=== PATIENT | female | born 1990 | race African-American/Black ===

== ENCOUNTER 2016-11-24 13:51 | Emergency (ER) | payer MEDICAID ==
[~2016-11-24] VITALS: Ht 157.5 cm; Wt 83.9 kg
[~2016-11-24 13:51] MED LIST: NORPTMEDS CO
[2016-11-24 13:59] VITALS: BP 133/81
[2016-11-24] MEDS ORDERED: KETOROLAC TROMETH 60MG/2ML VIAL IM ONE (15:15)
== END 2016-11-24 16:56 | disposition home or self-care (01) ==
LOC: ER 13:51
DX: S16.1XXA Strain of muscle, fascia and tendon at neck level, initial encounter (principal); Z88.0 Allergy status to penicillin; Z91.010 Allergy to peanuts; V49.9XXA Car occupant (driver) (passenger) injured in unspecified traffic accident, initial encounter; Y93.89 Activity, other specified; Y99.8 Other external cause status; Y92.89 Other specified places as the place of occurrence of the external cause
CPT/HCPCS: 72040; 96372; 99284; J1885

== ENCOUNTER 2018-05-30 20:29 | Emergency (ER) | payer MEDICAID | END 2018-05-30 20:30 | disposition left against medical advice (07) | LOC: ER 20:29 | DX: N93.9 Abnormal uterine and vaginal bleeding, unspecified (principal); Z53.21 Procedure and treatment not carried out due to patient leaving prior to being seen by health care provider ==

== ENCOUNTER 2018-05-31 15:59 | Emergency (ER) | payer MEDICAID ==
[~2018-05-31] VITALS: Ht 157.5 cm; Wt 79.4 kg
[2018-05-31 16:46] LABS: Basophils # (auto) 0.1 uL; Basophils % (auto) 0.7 % (0.0-2.0); Eosinophils # (auto) 0.3 uL; Eosinophils % (auto) 2.2 % (0.0-7.0); Hematocrit 39.8 % (36.0-46.0); Hemoglobin 12.9 g/dL (12.2-16.2); Lymphocytes # (auto) 3.7 uL; Mean Corpuscular Hgb Conc. 32.6 g/dL (32.0-36.0); Mean Corpuscular Volume 92.3 fL (80.0-100.0); Monocytes # (auto) 0.6 uL; Monocytes % (auto) 4.9 % (0.0-12.0); Neutrophils % (auto) 60.2 % (37.0-80.0); Nucleated Red Blood Cells % 0.1 %; Platelet Count (auto) 431 10^3/uL (140-450); Red Blood Cells 4.31 10^6/uL (4.0-5.20); Red Cell Distribution Width 14.6 % (11.8-14.3); White Blood Cell 11.6 10^3/uL (4.4-10.8)
[2018-05-31 17:00] LABS: Albumin 3.5 g/dL (3.4-5.0); BUN/Creatinine Ratio 14.1; Calcium 8.3 mg/dL (8.5-10.1); Potassium 3.5 mmol/L (3.5-5.1)
[2018-05-31 17:02] LABS: Bilirubin, Total 0.2 mg/dL (0.2-1.0); Total Protein 7.9 g/dL (6.4-8.2)
[2018-05-31 17:03] LABS: Urine Bacteria NONE SEEN /hpf (None Seen); Urine Blood Negative /uL (Negative); Urine Specific Gravity 1.015 (1.001-1.035); Urine WBC 1 /hpf (0 - 5)
[2018-05-31] MEDS ORDERED: SODIUM CHLORIDE 0.9% 1,000 ML IVB ONE (17:17)
[2018-05-31] MEDS ORDERED: ONDANSETRON HCL 4 MG/2 ML VIAL IV ONE ×2 (17:30→21:00)
[2018-05-31] MEDS ORDERED: MORPHINE SULFATE 10 MG/ML INJ 1ML SDV IV ONE ×2 (17:30→21:00)
[2018-05-31 18:40] LABS: INR 0.93 (0.9-1.15); Partial Thromboplastin Time 31.7 sec (23.78-33.04)
[2018-05-31 21:33] VITALS: BP 157/89
== END 2018-05-31 21:59 | disposition home or self-care (01) ==
LOC: ER 16:04
DX: T83.84XD Pain due to genitourinary prosthetic devices, implants and grafts, subsequent encounter (principal); T83.32XD Displacement of intrauterine contraceptive device, subsequent encounter; X58.XXXD Exposure to other specified factors, subsequent encounter; Z91.010 Allergy to peanuts
CPT/HCPCS: 36415; 74176; 76856; 80053; 81001; 81025; 84702; 85025; 85610; 85730; 94761; 96374; 96375; 96376; 99284; J2270; J2405

== ENCOUNTER 2019-03-01 15:24 | Inpatient (IN) | payer MEDICAID, OTHER ==
[~2019-03-01] VITALS: Ht 154.9 cm; Wt 107.0 kg
[2019-03-01 16:22] LABS: Urine Bacteria NONE SEEN /hpf (None Seen); Urine Blood Negative /uL (Negative); Urine Specific Gravity 1.023 (1.001-1.035); Urine WBC 1 /hpf (0 - 5)
[2019-03-01 16:30] LABS: Basophils # (auto) 0.1 uL; Eosinophils % (auto) 1.9 % (0.0-7.0); Monocytes # (auto) 0.8 uL; White Blood Cell 12.9 10^3/uL (4.4-10.8)
[2019-03-01 16:32] LABS: Eosinophils # (auto) 0.2 uL; Hematocrit 39.2 % (36.0-46.0); Lymphocytes # (auto) 4.1 uL; Mean Corpuscular Hemoglobin 29.7 pg (28.0-32.0); Mean Corpuscular Hgb Conc. 33.2 g/dL (32.0-36.0); Mean Corpuscular Volume 89.4 fL (80.0-100.0); Neutrophils # (auto) 7.6 uL; Neutrophils % (auto) 59.1 % (37.0-80.0); Nucleated Red Blood Cells % 0.1 %; Platelet Count (auto) 450 10^3/uL (140-450); Red Blood Cells 4.39 10^6/uL (4.0-5.20); Red Cell Distribution Width 14.4 % (11.8-14.3)
[2019-03-01 16:33] LABS: Albumin 3.6 g/dL (3.4-5.0); Calcium 8.8 mg/dL (8.5-10.1); Potassium 3.7 mmol/L (3.5-5.1)
[2019-03-01 16:36] LABS: BUN/Creatinine Ratio 13.4; Bilirubin, Total 0.2 mg/dL (0.2-1.0); Total Protein 7.9 g/dL (6.4-8.2)
[2019-03-01] MEDS ORDERED: KETOROLAC TROMETH 30 MG/ML 1ML VIAL IV ONE (16:45)
[2019-03-01] MEDS ORDERED: ONDANSETRON HCL 4 MG/2 ML VIAL IV ONE ×2 (16:45→22:45)
[2019-03-01] MEDS ORDERED: SODIUM CHLORIDE 0.9% 1,000 ML IV ONE (16:45)
[2019-03-01] MEDS ORDERED: MORPHINE SULF INJ 2 MG/ML SYRINGE 1ML IV ONE ×2 (18:00→22:45)
[2019-03-01] MEDS ORDERED: PROMETHAZINE HCL 25 MG/ML 1ML IV ONE ×2 (18:00→23:00)
[2019-03-01] MEDS ORDERED: PANTOPRAZOLE 40 MG/10 ML VIAL INJ IV ONE (22:30)
[2019-03-01 23:45] VITALS: BP 118/68
--- NOTE | 2019-03-01 23:45 | NUR ---
received pt from er nurse poc reviewed
[2019-03-02] MEDS: SODIUM CHLORIDE 0.9% 1,000 ML IV SCH ×3 (01:12→19:55)
[2019-03-02] MEDS: MORPHINE SULF INJ 2 MG/ML SYRINGE 1ML IV PRN ×4 (02:36→18:57)
[2019-03-02 05:00] VITALS: BP 111/57
[2019-03-02 06:23] LABS: Basophils # (auto) 0 uL; Basophils % (auto) 0.5 % (0.0-2.0); Eosinophils # (auto) 0.3 uL; Hematocrit 36.1 % (36.0-46.0); Hemoglobin 11.9 g/dL (12.2-16.2); Lymphocytes % (auto) 41.8 % (10.0-50.0); Mean Corpuscular Hemoglobin 29.7 pg (28.0-32.0); Mean Corpuscular Hgb Conc. 32.9 g/dL (32.0-36.0); Mean Corpuscular Volume 90.1 fL (80.0-100.0); Monocytes # (auto) 0.6 uL; Monocytes % (auto) 6.4 % (0.0-12.0); Neutrophils # (auto) 4.6 uL; Neutrophils % (auto) 48.3 % (37.0-80.0); Nucleated Red Blood Cells % 0.1 %; Platelet Count (auto) 391 10^3/uL (140-450); Red Cell Distribution Width 14.5 % (11.8-14.3); White Blood Cell 9.5 10^3/uL (4.4-10.8)
--- NOTE | 2019-03-02 06:24 | NUR ---
awoke request hot packs, pain not relieved with earlier med given
[2019-03-02 06:33] LABS: INR 0.95 (0.9-1.15); Partial Thromboplastin Time 28.2 sec (23.64-32.05)
[2019-03-02 06:34] LABS: BUN/Creatinine Ratio 11.8; Calcium 7.9 mg/dL (8.5-10.1); Potassium 3.8 mmol/L (3.5-5.1)
--- NOTE | 2019-03-02 06:50 | NUR ---
resting quietly report given to am nurse poc reviewed
--- NOTE | 2019-03-02 08:30 | NUR ---
PT REPORTS 10 PAIN IN ABDOMEN. PRN PAIN MEDICATION GIVEN. PT RESTING IN BED AND ENCOURAGED TO USE CALL LIGHT. WILL CONTINUE TO MONITOR.
[2019-03-02] MEDS: FAMOTIDINE (10MG/ML) 2ML VL IV SCH ×2 (10:35→21:19)
[2019-03-02] MEDS ORDERED: KETOROLAC TROMETH 30 MG/ML 1ML VIAL IV ONE (11:15)
[2019-03-02] MEDS ORDERED: AZITHROMYCIN 500MG/ 250ML 250 ML IV ONE (11:15)
[2019-03-02] MEDS ORDERED: cefTRIAXone 1GM/50ML D5W 50 ML IV ONE (11:15)
--- NOTE | 2019-03-02 11:30 | NUR ---
DR QUIGLEY SAW PATIENT, NEW ORDERS FOR CT OF THE CHEST WITH CONTRAST AND ABX, AND TO CALL MD WITH RESULTS.
[2019-03-02] MEDS: traMADol HCL 50 MG TAB PO PRN (11:40)
[2019-03-02] MEDS ORDERED: IOHEXOL 350 MG/ML 100ML IJ ONE (11:55)
--- NOTE | 2019-03-02 12:00 | NUR ---
PT REPORTS 10/10 PAIN IN RIGHT SIDE AND ABDOMEN. PRN PAIN MEDICATION GIVEN.
--- NOTE | 2019-03-02 12:15 | NUR ---
DR QUIGLEY ORDERED ONE TIME DOSE OF TORADOL, PRN TORADOL ALREADY GIVEN.
[2019-03-02 12:51] VITALS: BP 116/69
--- NOTE | 2019-03-02 13:38 | NUR ---
CALLED PBX AND PAGED DR QUIGLEY TO REPORT CT RESULTS REQUESTED.
--- NOTE | 2019-03-02 13:47 | NUR ---
PT REPORTS IV SITE HURTS. ASSESSED PT IV SITE. IV SITE SWOLLEN WITH LARGE BUMP JUST ABOVE THE RAC. SLIGHT ERYTHEMA NOTED. IV DC'D. PRESSURE DRESSING APPLIED. WILL ATTEMPT NEW IV SITE. DR QUIGLEY CALLED BACK. NOTIFIED CT RESULTS NEGATIVE. DR QUIGLEY AWARE.
--- NOTE | 2019-03-02 15:02 | NUR ---
Discharge instructions given as ordered. Encourage to follow up with PMD as instructed. All questions and concerns addressed. Patient verbalized understanding. Medication reconciliation form completed and copy given to patient. IV removed with catheter intact, pressure dressing applied. Telemetry unit returned to ICU. Patient taken to vehicle via wheelchair with all personal belongings, accompanied by staff and family member. No distress noted at time of departure. Addendum: 03/02/19 at 1504 by JEN MADRIGAL RN WRONG PATIENT
[2019-03-02 17:14] VITALS: BP 117/69
--- NOTE | 2019-03-02 19:24 | NUR ---
Opening Shift Note Assumed care of patient, awake and alert x 4. No S/S of distress/SOB or pain. NS infusing at ordered rate. Bed is in lowest position and locked. Call light within reach. Board updated. Instructed on POC and to call for assist PRN, will continue to monitor for changes Q1hr and PRN.
--- NOTE | 2019-03-02 19:57 | NUR ---
Paging hospitalist because patient is still having pain, 5 out of 10, in her right flank. Morphine given at 1900 only decreased pain from 7 to 5 out of 10. Pain is usually at at 5 for 90 minutes then increases back to 7-8 out of 10. Per patient, Tramadol does very little for pain. Patient is also breathing shallowly because pain is increased when she breathes in deep. Patient has an appendectomy 3 years ago but states that pain was very similar to the pain she is having now. Abd/Pelvic CT revealed sutures along cecum from appendectomy and some hepatomegaly. Requesting stronger pain medication if possible and GI consult.
--- NOTE | 2019-03-02 20:03 | NUR ---
Spoke to GISELL Irwin. Orders received: 1) Gallbladder ultrasound, 2) Dilaudid 0.5 mg IV q 4 hrs PRN pain, 3) Discontinue morphine, 4) GI consult for abdominal pain. Orders received, verified, and placed.
[2019-03-02] MEDS: HYDROmorphone HCL 2 MG/ML VL IV PRN (20:49)
[2019-03-02 21:57] VITALS: BP 124/62
[2019-03-03] MEDS: HYDROmorphone HCL 2 MG/ML VL IV PRN ×5 (00:34→20:36)
[2019-03-03] MEDS: traMADol HCL 50 MG TAB PO PRN ×2 (03:40→11:37)
[2019-03-03 05:00] VITALS: BP 111/63
[2019-03-03] MEDS: SODIUM CHLORIDE 0.9% 1,000 ML IV SCH ×2 (05:51→13:31)
[2019-03-03 06:55] LABS: Basophils # (auto) 0.1 uL; Basophils % (auto) 0.7 % (0.0-2.0); Eosinophils # (auto) 0.3 uL; Eosinophils % (auto) 2.5 % (0.0-7.0); Hematocrit 35.5 % (36.0-46.0); Hemoglobin 11.5 g/dL (12.2-16.2); Lymphocytes % (auto) 26.8 % (10.0-50.0); Mean Corpuscular Hemoglobin 29.1 pg (28.0-32.0); Mean Corpuscular Hgb Conc. 32.3 g/dL (32.0-36.0); Mean Corpuscular Volume 90.2 fL (80.0-100.0); Monocytes # (auto) 0.6 uL; Monocytes % (auto) 5.9 % (0.0-12.0); Neutrophils # (auto) 7.1 uL; Neutrophils % (auto) 64.1 % (37.0-80.0); Nucleated Red Blood Cells % 0.1 %; Platelet Count (auto) 400 10^3/uL (140-450); Red Blood Cells 3.94 10^6/uL (4.0-5.20)
[2019-03-03 07:03] LABS: BUN/Creatinine Ratio 4.8; Calcium 7.9 mg/dL (8.5-10.1); Potassium 3.7 mmol/L (3.5-5.1)
--- NOTE | 2019-03-03 08:25 | NUR ---
Patient back to room, crying, on a wheelchair, being assisted by JAIDEN Elizabeth. Assisted the patient back to bed. Patient said she went downstairs. Cigarette smell noted. Patient denies smoking.
--- NOTE | 2019-03-03 08:30 | NUR ---
Patient signed the AMA form to smoke off unit. Patient stated she's not going downstairs.
--- NOTE | 2019-03-03 08:42 | NUR ---
Patient came from the bathroom, crying, stated she's in pain, at 10/10 at this time. Dilaudid Inj 0.5 mg given for severe pain.
[2019-03-03] MEDS: ONDANSETRON HCL 4 MG/2 ML VIAL IV PRN ×2 (08:47→16:55)
--- NOTE | 2019-03-03 08:47 | NUR ---
Patient had vomiting. White, cloudy liquid vomitus noted. Zofran Inj given for nausea/vomiting.
[2019-03-03 08:51] VITALS: BP 119/71
[2019-03-03] MEDS: AZITHROMYCIN 500MG/ 250ML 250 ML IV SCH (10:08)
[2019-03-03] MEDS: FAMOTIDINE (10MG/ML) 2ML VL IV SCH (10:08)
[2019-03-03] MEDS: cefTRIAXone 1GM/50ML D5W 50 ML IV SCH (10:09)
--- NOTE | 2019-03-03 11:15 | NUR ---
New IV line started on the right hand, 22 gauge, intact and patent. IV line on the left forearm, patient complained of pain/sore on the site, IV line removed, IV catheter intact, pressure dressing applied.
--- NOTE | 2019-03-03 11:24 | NUR ---
Dr. Guerra at bedside. Patient complained of pain on the right lower back, crying. MD to put in new orders.
--- NOTE | 2019-03-03 11:37 | NUR ---
Ultram PO given for pain at 10/10.
[2019-03-03] MEDS ORDERED: PANTOPRAZOLE 40 MG/10 ML VIAL INJ IV ONE (11:45)
[2019-03-03 11:57] VITALS: BP 124/68
[2019-03-03] MEDS ORDERED: LORazepam 2MG/ML-1ML VIAL IV PRN (12:00)
--- NOTE | 2019-03-03 12:40 | NUR ---
Yajaira Sands at bedside. explained the EGD and Colonoscopy to the patient.
[2019-03-03] MEDS ORDERED: GOLYTELY 4L KIT PO ONE (12:45)
[2019-03-03] MEDS: CYCLOBENZAPRINE HCL 10 MG TAB PO SCH ×2 (13:29→21:44)
[2019-03-03] MEDS: KETOROLAC TROMETH 30 MG/ML 1ML VIAL IV SCH ×2 (13:30→21:44)
--- NOTE | 2019-03-03 13:30 | NUR ---
Ketorolac Inj given for pain as ordered.
--- NOTE | 2019-03-03 14:40 | NUR ---
Patient in bed, asleep. No acute distress noted.
[2019-03-03 16:20] VITALS: BP 106/64
[2019-03-03] MEDS: SUCRALFATE 1 GM/10 ML ORAL SUSP PO SCH ×2 (16:55→21:44)
--- NOTE | 2019-03-03 16:55 | NUR ---
Patient stated she's nauseous and her back and stomach in pain. Zofran Inj given for nausea, Dilaudid Inj 0.5 mg given for pain. Placed on O2 at 2 LPM. No acute distress noted.
--- NOTE | 2019-03-03 17:20 | NUR ---
Jose from Nuclear Medicine called that NM HIDA Scan will be done tomorrow morning, 03/04/2019; keep patient NPO, including Golytely. Jose made aware Yajaira Sands ordered EGD and Colonoscopy for tomorrow.
[2019-03-03] MEDS: PANTOPRAZOLE 40 MG TAB PO SCH (21:45)
--- NOTE | 2019-03-03 21:48 | NUR ---
Patient reports seeing "worm-like" things in her stool the last time she went to the bathroom. Patient reports she occasionally sees them sometimes and is concerned she may have a tapeworm. I told patient to notify me the next time she has a bowel movement so that I may assess.
[2019-03-03 21:57] VITALS: BP 125/70
--- NOTE | 2019-03-03 22:12 | NUR ---
Patient reported a painful sore on her right labia. Patient states she noticed it earlier today and does not know what could have caused it. I assessed and discovered what appears to be a pressure area on right labia. Wound photographed and measured. Wound consult placed. Will endorse to day shift RN.
--- NOTE | 2019-03-03 23:12 | NUR ---
Patient reports her stool this time is normal and free of worms. Will continue to assess.
[2019-03-04] VITALS (7 sets, daily range): BP systolic 102–151; BP diastolic 66–88
--- NOTE | 2019-03-04 00:03 | NUR ---
PT ASKING FOR DILAUDID.PT ON PHONE YELLING INTO IT. PT HAS NOW PLACED PHONE CONVERSATION ON SPEAKER. ID BAND OF PATIENT CHECKED AND PT/MEDICATION SCANNED. PT JUMPED UP FROM THE BED TO GO INTO THE BATHROOM. PT WAS GIVEN DILAUDID QUICKLY-BUT SLAMMED DOOR TO BATHROOM TO CONTINUE HER VOLATILE PHONE CONVERSATION.NOT KNOWING HOW LONG PATIENT WAS GOING TO BE IN THE BATHROOM;THE OPPORTUNITY TO QUICKLY MOVE HER ROOMATE TO ROOM 280 A WAS EXECUTED. Addendum: 03/05/19 at 0127 by Carrie Allen RN DATE FOR THIS SITUATION IS05 MARCH 3.
[2019-03-04] MEDS: HYDROmorphone HCL 2 MG/ML VL IV PRN ×5 (00:33→19:35)
[2019-03-04] MEDS: SODIUM CHLORIDE 0.9% 1,000 ML IV SCH ×3 (01:30→21:00)
--- NOTE | 2019-03-04 02:00 | NUR ---
Patient still has approximately 2/5 of Go-lytely left but patient must be NPO for EGD and HIDA scan in AM. Patient's stools are liquid and light robert colored.
[2019-03-04] MEDS: SUCRALFATE 1 GM/10 ML ORAL SUSP PO SCH ×4 (05:07→22:19)
[2019-03-04] MEDS: CYCLOBENZAPRINE HCL 10 MG TAB PO SCH ×3 (05:07→22:20)
[2019-03-04 05:38] LABS: Basophils # (auto) 0.1 uL; Basophils % (auto) 0.5 % (0.0-2.0); Eosinophils # (auto) 0.4 uL; Hematocrit 36.9 % (36.0-46.0); Hemoglobin 12.1 g/dL (12.2-16.2); Lymphocytes # (auto) 3.7 uL; Lymphocytes % (auto) 31.8 % (10.0-50.0); Mean Corpuscular Hemoglobin 29.5 pg (28.0-32.0); Mean Corpuscular Hgb Conc. 32.8 g/dL (32.0-36.0); Mean Corpuscular Volume 89.9 fL (80.0-100.0); Monocytes # (auto) 0.8 uL; Monocytes % (auto) 6.5 % (0.0-12.0); Neutrophils # (auto) 6.7 uL; Neutrophils % (auto) 58.2 % (37.0-80.0); Nucleated Red Blood Cells % 0.1 %; Platelet Count (auto) 441 10^3/uL (140-450); Red Blood Cells 4.11 10^6/uL (4.0-5.20); Red Cell Distribution Width 14.4 % (11.8-14.3); White Blood Cell 11.5 10^3/uL (4.4-10.8)
[2019-03-04] MEDS: KETOROLAC TROMETH 30 MG/ML 1ML VIAL IV SCH ×3 (05:47→22:19)
[2019-03-04] MEDS ORDERED: GOLYTELY 4L KIT PO ONE (06:00)
[2019-03-04 06:07] LABS: Potassium 3.6 mmol/L (3.5-5.1)
[2019-03-04 06:11] LABS: Albumin 3.1 g/dL (3.4-5.0); BUN/Creatinine Ratio 4.9; Bilirubin, Total 0.3 mg/dL (0.2-1.0)
[2019-03-04] MEDS: cefTRIAXone 1GM/50ML D5W 50 ML IV SCH (09:59)
[2019-03-04] MEDS: AZITHROMYCIN 500MG/ 250ML 250 ML IV SCH (10:00)
[2019-03-04] MEDS ORDERED: PANTOPRAZOLE 40 MG/10 ML VIAL INJ IV SCH (10:00)
[2019-03-04] MEDS: PANTOPRAZOLE 40 MG TAB PO SCH ×2 (10:00→22:20)
--- NOTE | 2019-03-04 11:00 | NUR ---
EARLY CHILDHOOD DIRECTOR AT BEDSIDE. RN STATES NO NEED FOR FURTHER INTERVENTION AT THIS TIME.
--- NOTE | 2019-03-04 11:00 | NUR ---
WOUND CARE NOTE: IN TO SEE PATIENT PER WOUND CARE CONSULT REQUEST. PATIENT ADMITTED TO [facility] WITH DIAGNOSIS OF ABDOMINAL PAIN. CURRENT ALCYE SCORE IS 19. PATIENT IS FULLY AMBULATORY. SHE HAS DEVELOPED A SMALL SKIN TEAR TO THE RIGHT LABIA MAJORA. WOUND PHOTOS TAKEN BY BEDSIDE NURSE FOR REFERENCE. NO S/S OF ABSCESS OR INFECTION NOTED. WOUND IS SMALL, 0.8 X 1 CM. WOUND APPEARS A SKIN TEAR OR ABRASION. NO DRAINAGE NOTED. RECOMMEND: BID/PRN APPLICATION OF ZGUARD. SKIN/WOUND CARE PLAN IMPLEMENTED. NO FURTHER WOUND CARE NEEDED AT THIS TIME.
--- NOTE | 2019-03-04 12:47 | NUR ---
Midline Placement: Patient educated on need for midline placement. All risks and benefits explained and all questions and concerns addresses prior to procedure. 18g/10cm midline inserted via left basilic vein using Ultrasound. Sterile technique utilized. Blood return obtained from lumen and flushed easily with NS using proper technique. Midline secured with saline lock; biodisc and occlusive dressing applied. Meseret HWANG notified. Midline lot #[id number]
--- NOTE | 2019-03-04 13:50 | NUR ---
PATIENT TRANSPORTED DOWN TO O.R. WITH THIS RN AND STAFF MEMBER FOR EGD/COLONOSCOPY PROCEDURE. PATIENT SHOWS NO S/S OF DISTRESS, SOB, OR PAIN AT THIS TIME
[2019-03-04] MEDS ORDERED: MORPHINE SULFATE 4 MG/ML SYR/VIAL IV PRN (15:15)
[2019-03-04] MEDS ORDERED: MIDAZOLAM HCL 1MG/1ML-2 ML VIAL IV PRN (15:15)
[2019-03-04] MEDS ORDERED: KETOROLAC TROMETH 30 MG/ML 1ML VIAL IV ONE (15:15)
[2019-03-04] MEDS ORDERED: ONDANSETRON HCL 4 MG/2 ML VIAL IV PRN (15:15)
[2019-03-04] MEDS ORDERED: LABETALOL HCL 5 MG/ML 4ML SYRINGE IV PRN (15:15)
[2019-03-04] MEDS ORDERED: ePHEDrine SULFATE 50 MG/ML AMP IV PRN (15:15)
[2019-03-04] MEDS ORDERED: HYDROmorphone HCL 2 MG/ML VL IV PRN (15:15)
[2019-03-04] MEDS ORDERED: MEPERIDINE HCL (25 MG/ML) 1ML VIAL ONE (15:20)
[2019-03-04] MEDS ORDERED: MIDAZOLAM HCL 1MG/1ML-2 ML VIAL ONE (15:20)
[2019-03-04] MEDS ORDERED: fentaNYL CITRATE 100 MCG/2 ML VL ONE (15:20)
--- NOTE | 2019-03-04 15:24 | NUR ---
Nutrition Assessment Notes please see attached link for complete assessment Est. Needs ABW [id number] kcal (17-20 kcal/kgBW), 78-85 gms pro (1.0-1.1gms/kgBW). Will continue to monitor pertinent labs and reassess nutrient need prn Addendum: 03/04/19 at [address] Amended: Links added.
[2019-03-04] MEDS ORDERED: DexAMETHasone SOD PHOS 10MG/1ML VIAL INJ ONE (15:30)
[2019-03-04] MEDS ORDERED: PROPOFOL 10 MG/ML 20 ML IV ONE (15:45)
[2019-03-04] MEDS ORDERED: HYOSCYAMINE SULF 0.125 MG ODT TAB PO PRN (16:00)
--- NOTE | 2019-03-04 21:00 | NUR ---
PT AWAKE ALERT ORIENTED X 4;AMBULATING IN [place] ;BACK IN BED WITH SPOUSE ON SPEAKERPHONE YELLING INTO PHONE.PT WANTING MORE DILAUDID;EXPLAINED THAT HER DILAUDID IS EVERY FOUR HOURS AND THAT SHE COULD HAVE IT AT 2330.WROTE TIME OF NEXT DILAUDID ON WHITE BOARD TO HELP PATIENT REMEMBER.
[2019-03-05] MEDS: HYDROmorphone HCL 2 MG/ML VL IV PRN ×3 (00:03→08:52)
--- NOTE | 2019-03-05 00:20 | NUR ---
PT NOW BACK IN BED UPSET THAT SHE WAS GIVEN DILAUDID BUT HAS NOT BEEN FLUSHED YET. PT WANTS TO SPEAK TO THE HYDRAULIC AND PLUMBING INSTALLER. PT STATED TO THE CHARGE THAT SHE IS EMOTIONALLY UPSET OVER ALOT OF THINGS AND WANTS ANOTHER NURSE BECAUSE "THIS ONE" DID NOT WAIT OUTSIDE HER DOOR UNTIL SHE WAS DONE IN THE BATHROOM.PT STATES SOMEONE HAS ALREADY FLUSHED HER MIDLINE-BUT PT WAS WILLING TO ALLOW RN TO FLUSH AGAIN. REPORT WILL BE GIVEN TO RO HWANG. PT'S DOOR IS CLOSED BECAUSE SHE IS CONTINUING TO YELL INTO THE PHONE "I NEVER CHEATED ON YOU"! AND IS CRYING. MALE VOICE IS ON SPEAKER AND CAN LOUDLY BE HEARD IN THE HALLWAY.
--- NOTE | 2019-03-05 01:00 | NUR ---
Assumed care of patient: Assumed care of patient, awake and alert. No S/S of distress/SOB or pain. Instructed on POC and to call for assist PRN, will continue to monitor for changes Q1hr and PRN.
[2019-03-05 05:38] VITALS: BP 152/63
[2019-03-05] MEDS: KETOROLAC TROMETH 30 MG/ML 1ML VIAL IV SCH (05:44)
[2019-03-05] MEDS: CYCLOBENZAPRINE HCL 10 MG TAB PO SCH (05:45)
[2019-03-05] MEDS: SUCRALFATE 1 GM/10 ML ORAL SUSP PO SCH ×2 (06:31→12:06)
[2019-03-05] MEDS: SODIUM CHLORIDE 0.9% 1,000 ML IV SCH (06:31)
--- NOTE | 2019-03-05 07:45 | NUR ---
Opening Note received report from assistant casino shift manager RN. Patient is awake, alert and oriented x4. No signs or symptoms of distress noted at this time. Patient is on room air, respirations even and unlabored. Patient states pain 7/10 to right flank. Will medicate per orders. Reviewed plan of care with patient, patient verbalized understanding. Bed in low and locked position, call light within reach. Will continue to monitor Q1 hour and PRN.
[2019-03-05] MEDS: PANTOPRAZOLE 40 MG TAB PO SCH (08:51)
[2019-03-05] MEDS: cefTRIAXone 1GM/50ML D5W 50 ML IV SCH (08:51)
[2019-03-05 09:25] VITALS: BP 134/68
[2019-03-05 13:08] VITALS: BP 134/68
--- NOTE | 2019-03-05 13:47 | NUR ---
DISCHARGE Discharge instructions given as ordered. Encourage to follow up with primary care physician as instructed. All questions and concerns addressed. Patient verbalized understanding. Medication reconciliation form completed and copy given to patient. New prescriptions given to patient. IV catheter removed, catheter intact, pressure dressing applied. Patient taken down to personal vehicle via wheelchair, accompanied by staff and family member, with all personal belongings. No signs or symptoms of distress noted at this time time.
== END 2019-03-05 13:50 | disposition home or self-care (01) | DRG 241 ==
LOC: ER 15:29 → OVERFLOW 15:30 → WEST WING 23:07
PROVIDERS: ADMIT Internal Medicine; ATTEND Internal Medicine
PROC: 0DB68ZX Excision of Stomach, Via Natural or Artificial Opening Endoscopic, Diagnostic (ICD-10-PCS; principal; 2019-03-04 15:12)
PROC: 0DBE8ZX Excision of Large Intestine, Via Natural or Artificial Opening Endoscopic, Diagnostic (ICD-10-PCS; 2019-03-04 15:12)
DX: K29.71 Gastritis, unspecified, with bleeding (principal); E66.01 Morbid (severe) obesity due to excess calories; K76.0 Fatty (change of) liver, not elsewhere classified; R07.89 Other chest pain; R16.0 Hepatomegaly, not elsewhere classified; E86.0 Dehydration; F17.210 Nicotine dependence, cigarettes, uncomplicated; F41.9 Anxiety disorder, unspecified; Z68.41 Body mass index [BMI] 40.0-44.9, adult; Z82.49 Family history of ischemic heart disease and other diseases of the circulatory system; Z83.3 Family history of diabetes mellitus; Z88.0 Allergy status to penicillin; Z90.49 Acquired absence of other specified parts of digestive tract; Z91.010 Allergy to peanuts
CPT/HCPCS: 36415; 43239; 45380; 71045; 71275; 74176; 76705; 78226; 80048; 80053; 81001; 83690; 84702; 85025; 85610; 85730; 86850; 86900; 86901; 93005; 93306; 94761; 96361; 96374; 96375; C9113; G0378; J0696; J1100; J1885; J2250; J2405; J2704; J3490; J7042